=== PATIENT | female | born 1960 | race Caucasian/White ===

== ENCOUNTER 2023-08-16 08:13 | Outpatient (OUT) | payer OTHER, SELFPAY ==
[2023-08-16 08:38] LABS: Hemoglobin 14.4 g/dL (12.0-16.0)
--- NOTE | 2023-08-16 08:39 | XR_ITS ---
The [place] [id number] Patient Name: ISACC MORALES MRN: [id number] date: 1960 Sex: F Assigned Patient Location: RAD Current Patient Location: [facility] Accession/Order Number: [id number] Exam Date: 08/16/2023 08:42 Report Date: 08/16/2023 12:46 At the request of: KENRICK KEARNEY Procedure: XR chest 2V EXAM: Single view of the chest HISTORY: . Neoplastic Malignant Related Fatigue R53.0 . COMPARISON: None. TECHNIQUE: Frontal and lateral chest FINDINGS: Vascularity unremarkable. Lungs are free of focal infiltrates. Grossly no bony abnormality is appreciated. XR/XR chest 2V IMPRESSION: No acute heart or lung disease identified. Electronically authenticated by: NATALIE BOWLING Date: 08/16/2023 12:46
--- NOTE | 2023-08-16 09:47 | RT_ITS ---
The [facility] Test Date: 2023-08-16 Pat Name: ISACC MORALES Department: Room: - Gender: Female Insurance Clerk: Catrachita Robles RRT : 1960 Requested By: [id number] Order Number: [id number] Reading MD: Jaylon Marin Interpretive Statements Pulmonary function testing was completed according to ATS criteria. Findings were considered accurate and reproducible, with exception of DLCO which did not meet ATS standards. Both pre- and post-bronchodilator values utilized for spirometry. Spirometry (based on pre-bronchodilator values): -FEV1/FVC: Reduced @ 55% -FEV1: Severely reduced @ 40% -FVC: Reduced @ 56% -There is a positive bronchodilator response in FEV1 and FVC. Lung volumes by plethysmography (based on pre-bronchodilator values): -RV: Increased @ 182% -TLC: High normal @ 116% -Airway resistance: Increased -Airway conductance: Decreased Diffusion capacity: -DLCO: Normal @ 85% when corrected for Hb 14.4g/dL Flow-volume loop: -Severe obstructive pattern Impressions: Spirometry suggests severe obstruction. There is a positive bronchodilator response. An elevated RV suggests air trapping. The diffusion capacity is normal. Overall study is compatible with asthma. Clinical correlation required. Electronically Signed On 08-16-2023 17:32:16 EDT by Jaylon Marin
[2023-08-16] MEDS: ALBUTEROL SULFATE 2.5 MG/3 ML VIAL NEB IH (10:29)
== END 2023-08-16 08:14 | disposition home or self-care (01) ==
LOC: RAD 08:20
PROVIDERS: PCP Family Medicine; Visit Provider Family Medicine
DX: R05.3 Chronic cough (principal)
CPT/HCPCS: 36415; 71046; 85018; 94060; 94726; 94729

== ENCOUNTER 2023-09-20 07:27 | Outpatient (OUT) | payer OTHER, SELFPAY ==
[2023-09-20 07:47] LABS: Basophils Absolute Auto 0.1 10^3/uL (0.0-0.1); Basophils Percent Auto 2.2 % (0.2-2.0); Eosinophils Absolute Auto 0.3 10^3/uL (0.0-0.7); Eosinophils Percent Auto 6.7 % (0.9-7.0); Hematocrit 43.5 % (36.0-48.0); Hemoglobin 14.1 g/dL (12.0-16.0); Immature Granulocytes Abs Auto 0.01 10^3/uL (0.00-0.03); Immature Granulocytes Pct Auto 0.2 % (0.0-0.5); Lymphocytes Absolute Auto 1.7 10^3/uL (1.2-3.8); Lymphocytes Percent Auto 33.3 % (20.5-60.0); Mean Corpuscular HGB Conc 32.4 g/dL (29.9-35.2); Mean Corpuscular Hemoglobin 29.9 pg (26.7-34.0); Mean Corpuscular Volume 92.4 fL (81.0-99.0); Mean Platelet Volume 8.9 fL (9.5-13.5); Monocytes Absolute Auto 0.6 10^3/uL (0.3-0.8); Monocytes Percent Auto 10.8 % (1.7-12.0); Neutrophils Absolute Auto 2.4 10^3/uL (1.4-6.5); Neutrophils Percent Auto 46.8 % (43.0-75.0); Platelet Count 260 10^3/uL (150-450); Red Blood Count 4.71 10^6/uL (4.20-5.40); Red Cell Distribution Width 12.9 % (11.0-15.0); White Blood Count 5.1 10^3/uL (4.0-11.0)
[2023-09-25 19:07] LABS: Immunoglobulin E, Total 39 IU/mL (6-495)
== END 2023-09-20 07:28 | disposition home or self-care (01) ==
LOC: LAB 07:28
PROVIDERS: PCP Family Medicine; Visit Provider Internal Medicine
DX: J45.50 Severe persistent asthma, uncomplicated (principal)
CPT/HCPCS: 36415; 82785; 85025

== ENCOUNTER 2024-10-31 09:11 | Outpatient (OUT) | payer OTHER, SELFPAY ==
--- NOTE | 2024-10-31 09:18 | XR_ITS ---
The [address] [address] Patient Name: ISACC MORALES MRN: [id number] date: 1960 Sex: F Assigned Patient Location: [facility] Current Patient Location: [facility] Accession/Order Number: [id number] Exam Date: 10/31/2024 10:17 Report Date: 10/31/2024 10:29 At the request of: KENRICK KEARNEY Procedure: XR lumbar spine min 4V CLINICAL DATA: Low back and left hip pain. LEFT HIP WITH AP PELVIS - 3 views COMPARISON: None available AP view of the pelvis as well as AP and frog-lateral views of the left hip were obtained. No fracture or dislocation is identified. The hip joint spaces are maintained. There is no significant arthritic disease. No soft tissue abnormalities are present. XR/XR hip LT 2V w/ pelvis IMPRESSION: NO ACUTE BONY FINDINGS. LUMBAR SPINE -5 views: COMPARISON: None AP, lateral, both oblique and lateral coned-down views of the lumbosacral junction were obtained. There is subtle dextroscoliotic curvature. There is no evidence of fracture. There is slight retrolisthesis of L1 on L2 and L2 on L3. There is minimal anterolisthesis of L3 on L4 and L4 and L5. There is mild disc space narrowing at L2-3 and L4-5. There are tiny endplate spurs. There is moderate mid and lower lumbar facet hypertrophy. No pars defect is identified. The sacroiliac joints are maintained and show minor sclerosis. There are no paraspinal soft tissue abnormalities. IMPRESSION: SUBTLE SCOLIOSIS AND DEGENERATIVE CHANGES Impression dictated by: Rsoio Garcia M.D. 10/31/2024 10:29 AM Dictation Location: [place] [address] Electronically authenticated by: [id number] Y Date: 10/31/2024 10:29
--- NOTE | 2024-10-31 09:18 | XR_ITS ---
The [address] [address] Patient Name: ISACC MORALES MRN: [id number] date: 1960 Sex: F Assigned Patient Location: [facility] Current Patient Location: [facility] Accession/Order Number: [id number] Exam Date: 10/31/2024 10:17 Report Date: 10/31/2024 10:29 At the request of: KENRICK KEARNEY Procedure: XR lumbar spine min 4V CLINICAL DATA: Low back and left hip pain. LEFT HIP WITH AP PELVIS - 3 views COMPARISON: None available AP view of the pelvis as well as AP and frog-lateral views of the left hip were obtained. No fracture or dislocation is identified. The hip joint spaces are maintained. There is no significant arthritic disease. No soft tissue abnormalities are present. XR/XR lumbar spine min 4V IMPRESSION: NO ACUTE BONY FINDINGS. LUMBAR SPINE -5 views: COMPARISON: None AP, lateral, both oblique and lateral coned-down views of the lumbosacral junction were obtained. There is subtle dextroscoliotic curvature. There is no evidence of fracture. There is slight retrolisthesis of L1 on L2 and L2 on L3. There is minimal anterolisthesis of L3 on L4 and L4 and L5. There is mild disc space narrowing at L2-3 and L4-5. There are tiny endplate spurs. There is moderate mid and lower lumbar facet hypertrophy. No pars defect is identified. The sacroiliac joints are maintained and show minor sclerosis. There are no paraspinal soft tissue abnormalities. IMPRESSION: SUBTLE SCOLIOSIS AND DEGENERATIVE CHANGES Impression dictated by: Rosio Garcia M.D. 10/31/2024 10:29 AM Dictation Location: [place] [address] Electronically authenticated by: [id number] Y Date: 10/31/2024 10:29
--- OUTSIDE RECORDS SUMMARY | 2024-10-31 09:30 | XMS_ITS | CCD ---
Author Organization [facility] Care Team Providers Care Drapery Seamstress Name Role Phone KENRICK KEARNEY Attending Unavailable KENRICK KEARNEY Referring Unavailable KENRICK KEARNEY Primary Care Unavailable Problems Problem Classification Problem Date Documented Da te Episodic/Chronic Other screening for suspected conditions (not mental disorders or infectious disease) (1 source) Encounter for screening mammogram for malignant neoplasm of breast; Translations: [Encounter for screening mammogram for malignant neoplasm of breast] Onset: 05-20-2024 Episodic Results Test Name Value Interpretation Reference Range Facil ity MAMM SCREENING BILATERAL W C senior field engineer 05-21-2024 MAMM SCREENING BILATERAL W CAD MAMM SCREENING BILATERAL W CAD ISACC MORALES 1960 [id number] EXAM: MAMM SCREENING BILATERAL W CAD, 05/20/2024 9:14 AM CLINICAL INDICATIONS: Screening, Visit for screening mammogram COMPARISON: Multiple prior mammograms were viewed for comparison dating back to 03/27/2019 TECHNIQUE: Bilateral digital tomosynthesis MLO and CC views of the breasts were obtained, with creation of synthetic 2D views. Computer aided detection was utilized. FINDINGS: There are scattered areas of fibroglandular density. There are no suspicious masses, calcifications, or areas of architectural distortion. IMPRESSION: No mammographic evidence of malignancy. BI-RADS: BI-RADS 1 - Negative RECOMMENDATION: Routine screening mammogram in 1 year. RISK ASSESSMENT: TC Lifetime risk: 10.8%. The patient's reported personal and family medical history was used calculate their Tyrer-Cuzick lifetime risk of malignancy. Scores less than 20% are not considered high risk per ACR guidelines and patient should continue with the above recommendation. Finalized by Ida Abdul MD on 05/21/2024 12:22 PM 1 b MAMM 1 YR Normal [facility] Encounters Encounter Date Encounter Type Care Provider Facility Start: 05-20-2024 End: 05-20-2024 ambulatory [facility] Payers Date Payer Category Payer Private Health Insurance [id number] 1960 Unknown [id number] Summary Purpose Family History No Family History Records Found Advance Directives No Advanced Directives Records Found Additional Source Comments INFORMATION SOURCE (unrecogn ized section and content) DATE CREATED AUTHOR 05/22/2024 [facility] FOR RECORDS PERTAINING TO PATIENTS WHO ARE OR HAVE BEEN ENROLLED IN A CHEMICAL DEPENDENCY/SUBSTANCEABUSE PROGRAM, SOME INFORMATION MAY BE OMITTED. This clinical summary was aggregated from multiple sources. Caution should be exercised in using it in the provision of clinical care. This summary normalizes information from multiple sources, and as a consequence, information in this document may materially change the coding, format and clinical context of patient data. In addition, data may be omitted in some cases. CLINICAL DECISIONS SHOULD BE BASED ON THE PRIMARY CLINICAL RECORDS. [employer] provides no warranty or guarantee of the accuracy or completeness of information in this document.
== END 2024-10-31 09:12 | disposition home or self-care (01) ==
LOC: RAD 09:13
PROVIDERS: PCP Family Medicine; Visit Provider Family Medicine
DX: M25.552 Pain in left hip (principal); M54.32 Sciatica, left side; M41.9 Scoliosis, unspecified; M51.369 Other intervertebral disc degeneration, lumbar region without mention of lumbar back pain or lower extremity pain
CPT/HCPCS: 72110; 73502